=== PATIENT | male | born 1995 | race Hispanic/Latino ===

== ENCOUNTER 2020-08-09 12:20 | Emergency (ER) | payer MEDICAID, SELFPAY ==
--- NOTE | ~2020-08-09 | XR_ITS ---
XR forearm LT 2V 08/09/2020 12:50 Indication: Status post fall. Left arm pain. Procedure: 2 views left forearm Comparison: No prior studies for comparison. Findings: There is a healing fracture proximal diaphysis of the ulna. There is subtle periosteal reac tion. Mild soft tissue swelling there is mild volar angulation. No definite radial fracture is seen. No significant displacement. Impression: 1: Nondisplaced healing fracture proximal diaphysis of the left ulna. Reviewed, dictated and finalized at location A. Impression: 1: Nondisplaced healing fracture proximal diaphysis of the left ulna.
--- NOTE | ~2020-08-09 | XR_ITS ---
XR elbow LT min 3V 08/09/2020 13:18 Indication: Left elbow pain after injury Procedure: 4 views left elbow Comparison: Left forearm series dated 08/09/2020 Findings: There is a nondisplaced proximal ulnar diaphyseal fracture with periosteal reaction, consis tent with healing. No other fracture identified. No significant elbow effusion. Impression: 1: Healing proximal ulnar diaphyseal fracture. Reviewed, dictated and finalized at location A. Impression: 1: Healing proximal ulnar diaphyseal fracture.
[2020-08-09 12:25] VITALS: BP 147/104; PULSE 93; RESP 17; TEMP 36; O2SAT 99
--- NOTE | 2020-08-09 13:59 | ED.UPPEXIN ---
HPI - Extremity Injury (Upper) General Chief Complaint: Extremity Injury, Upper Stated Complaint: left arm pain Time Seen by Provider: 08/09/20 12:38 History of Present Illness HPI narrative: Patient is a 25-year-old male who presents ER with left forearm pain. Patient was on a ladder when he started to fall and he struck his arm. Has throbbing and numbness over proximal forearm. Mild discomfort in the elbow. Pain is worse with supination. No distal numbness or tingling. Did not strike his head or lose consciousness. Related Data Allergies Allergy/AdvReac Type Severity Reaction Status Date / Time No Known Allergies Allergy Mild Verified 08/09/20 12:35 Review of Systems Musculoskeletal: Musculoskeletal: Denies arthralgias and Denies joint swelling Neurologic: Denies headache(s), Denies focal weakness and Reports numbness PMFSH Past Medical History Medical History (Updated 08/09/20 @ 14:03 by Mamadou Harrison MD) Healthy adult male Surgical History Surgical History (Updated 08/09/20 @ 14:00 by Mamadou Harrison MD) No history of previous surgery Social History Social History (Updated 08/09/20 @ 14:00 by Mamadou Harrison MD) Smoking status: Current every day smoker Gender identity (if verbalized by the patient): Male Exam Narrative: Exam Narrative: GENERAL: Well-appearing, well-nourished, and in no acute distress. HEAD: Normocephalic, atraumatic. ENT: Mucous membranes moist. CHEST: Clear to auscultation. No respiratory distress. HEART: Regular rate and rhythm. Normal peripheral pulses. EXTREMITIES: Focused left upper extremity exam reveals tenderness over the radial head and proximal ulna. No tenderness of the ulnar condyle or the wrist/anatomic snuffbox. Normal radial pulses. Normal sensation with sharp touch. SKIN: Warm, dry, no rash. NEURO: No focal deficits. Alert and oriented x3. Course Course Emergency Course: Patient informed of results. Long-arm posterior splint applied by nursing staff. Vital Signs Vital signs: Vital Signs Temperature 96.8 F L 08/09/20 12:25 Pulse Rate 93 08/09/20 12:25 Respiratory Rate 17 08/09/20 12:25 Blood Pressure 147/104 H 08/09/20 12:25 Pulse Oximetry 99 08/09/20 12:25 Temperature 96.8 F L 08/09/20 12:25 Pulse Rate 93 08/09/20 12:25 Respiratory Rate 17 08/09/20 12:25 Blood Pressure 147/104 H 08/09/20 12:25 Pulse Oximetry 99 08/09/20 12:25 Discharge Plan Discharge Clinical Impression: Left ulnar fracture Patient Disposition: Home, Self-Care Condition: Stable Instructions: Arm Fracture in Adults (ED) Additional Instructions: Follow-up with orthopedic surgery. Return the ER if you have new injury, you have a cool/blue extremity, you have sudden increase in your pain, you have other concerns. Prescriptions: New hydrocodone-acetaminophen 5-325 mg tablet 1 tablet PO Q6H PRN (Reason: pain) Qty: 20 RF: 0 Follow-up/Referrals: Mirtha,GISELA Dela Cruz [Primary Care Provider] - Slick Mejía MD [Physician] - 1 Week Stand Alone Forms: Work/School Release IP
[2020-08-09 14:21] VITALS: PULSE 88; RESP 14
== END 2020-08-09 14:21 | disposition home or self-care (01) ==
PROVIDERS: Emergency Provider Emergency Medicine; PCP Registered Nurse
DX: S52.002A Unspecified fracture of upper end of left ulna, initial encounter for closed fracture (principal); W11.XXXA Fall on and from ladder, initial encounter; F17.200 Nicotine dependence, unspecified, uncomplicated
CPT/HCPCS: 29105; 73080; 73090; 99284; A4565; A9270